=== PATIENT | male | born 1945 | race Caucasian/White ===

== ENCOUNTER → 2016-11-07 | Outpatient (CLI) | payer MEDICARE ==
--- NOTE | 2016-11-07 11:28 | FL ---
EXAMINATION TYPE: FL barium swallow DATE OF EXAM: 11/07/2016 CLINICAL HISTORY: Throat pain for 2 weeks relieved by omeprazole per patient. TECHNIQUE: A double contrast esophagram is performed utilizing air and barium. A total of 19 second s of fluoroscopic time was utilized during procedure. 28 images are saved during procedure. COMPARISON: None FINDINGS: The esophagus shows normal motility and emptying into the stomach. No evidence of hiatal h ernia or stricture noted. No intraluminal mass is noted. No significant gastroesophageal reflux was s een during real time performance of this study. IMPRESSION: No significant abnormality is seen to account for patient's symptoms.
== END | disposition home or self-care (01) ==
LOC: RADFLMAIN 10:38
PROVIDERS: ATTEND Internal Medicine
DX: R13.12 Dysphagia, oropharyngeal phase (principal)
CPT/HCPCS: 74220

== ENCOUNTER → 2017-05-21 | Outpatient (CLI) | payer MEDICARE, OTHER ==
--- NOTE | 2017-05-21 10:27 | XR ---
EXAMINATION TYPE: XR lumbosacral spine min 4V DATE OF EXAM: 05/21/2017 COMPARISON: NONE HISTORY: Low back pain TECHNIQUE: Five-view lumbar spine FINDINGS: There is a scoliosis present with convexity to left. There 5 lumbar-type vertebral bodies. Pedicles are intact. Some facet degenerative changes present L5-S1. Spondylosis is present. Posterior disc space narrowing is present L4-5. Mild disc space narrowing is present L3-4 and L5-S1 . IMPRESSION: 1. Scoliosis. 2. Mild degenerative disc change
== END | disposition home or self-care (01) ==
LOC: RADXRYALE 10:01
PROVIDERS: ATTEND Internal Medicine
DX: M47.816 Spondylosis without myelopathy or radiculopathy, lumbar region (principal); M41.86 Other forms of scoliosis, lumbar region
CPT/HCPCS: 72110

== ENCOUNTER → 2017-08-28 | Outpatient (CLI) | payer MEDICARE ==
--- NOTE | 2017-08-28 12:12 | XR ---
EXAMINATION TYPE: XR cervical spine comp DATE OF EXAM: 08/28/2017 COMPARISON: NONE HISTORY: Neck pain TECHNIQUE: Five-view cervical spine FINDINGS: Mild foraminal narrowing on the left is present C3-4 C4-5 C5-6. There is more moderate narr owing diffusely on the right foramen C3-4 C4-5 C5-6 C6-7. Prevertebral space is normal. Anterior vertebral body spurring is present. Alignment appears normal. Disc heights are preserved. Exam is supplemented with a transthoracic swimmer's view. There is some l imitation visualizing the lower cervical spine. IMPRESSION: 1. Foraminal narrowing present bilaterally, Greater on the right. Consider MRI for additional evalua tion.
== END | disposition home or self-care (01) ==
LOC: RADXRYALE 11:20
PROVIDERS: ATTEND Internal Medicine
DX: M99.71 Connective tissue and disc stenosis of intervertebral foramina of cervical region (principal)
CPT/HCPCS: 72050

== ENCOUNTER → 2017-09-24 | Outpatient (CLI) | payer MEDICARE ==
--- NOTE | 2017-09-24 13:10 | MR ---
EXAMINATION TYPE: MR cervical spine wo con DATE OF EXAM: 09/24/2017 COMPARISON: 08/28/2017 cervical spine radiographs HISTORY: Spinal stenosis, cervical region TECHNIQUE: Multiplanar, multisequence images of the cervical spine were acquired. FINDINGS: The cervical spine vertebral bodies maintain normal vertebral body height and alignment. Melo ne marrow signal is within normal limits. Visualized portions of the posterior fossa are grossly unre markable. Prevertebral soft tissues are within normal limits. No suspicious extra dural fluid collect ion. There is very subtle increased cervical cord signal at C3 on T2-weighted imaging. This is short segment and measures approximately 5 to 6 mm. C2-C3: There is a small central disc herniation effacing the ventral subarachnoid space and abutting the ventral cord creating mild spinal canal stenosis. Bilateral mild uncovertebral hypertrophy also c reates bilateral mild neural foraminal narrowing. C3-C4: There is a right paracentral disc herniation creating moderate spinal canal stenosis and commi nution with ligamentum flavum buckling. This also results in abnormal spinal cord signal focally sugg estive of myelomalacia as there is no cord expansion to indicate acute edema. Uncovertebral hypertrop hy and facet arthropathy moderately narrow the right neural foramen and creating moderate to severe l eft neural foraminal narrowing. C4-C5: There is a small broad-based disc bulge, uncovertebral hypertrophy and facet arthropathy creat ing moderate bilateral neural foraminal narrowing and mild spinal canal stenosis. C5-C6: There is a left paracentral disc herniation impressing upon the cervical cord and effacing the subarachnoid space creating moderate spinal canal stenosis. There is also moderate to severe left ne ural foraminal narrowing as a result of this herniation in combination with uncovertebral hypertrophy and facet arthropathy as well as mild right neural foraminal narrowing. C6-C7: There is a small left paracentral disc herniation creating mild spinal canal stenosis. Uncover tebral hypertrophy and facet arthropathy creates moderate left neural foraminal narrowing and mild ri ght neural foraminal narrowing. C7-T1: There is a small broad-based disc bulge resulting in mild bilateral neural foraminal narrowing . No spinal canal stenosis. IMPRESSION: 1. Right paracentral disc herniation at C3-C4 creating moderate spinal canal stenosis and abnormal sp inal cord signal focally suggesting myelomalacia as there are no secondary signs of acute cord edema. In combination with degenerative changes there is moderate to severe left neural foraminal narrowing and moderate right neural foraminal narrowing at this level. 2. Left paracentral disc herniation at C5-C6 creating moderate spinal canal stenosis, moderate severe left neural foraminal narrowing, and mild right neuroforaminal narrowing. 3. Small left paracentral disc herniation at C6-C7 creating mild spinal canal stenosis. Degenerative changes contribute to moderate left neural foraminal narrowing and mild right neural foraminal narrow ing. 4. Small central disc herniation at C2-C3 creating mild spinal canal stenosis. 5. Moderate multilevel degenerative disc disease throughout the cervical spine without other neurofor aminal narrowing as described above.
== END | disposition home or self-care (01) ==
LOC: RADMRIMAIN 12:19
PROVIDERS: ATTEND Internal Medicine
DX: M48.02 Spinal stenosis, cervical region (principal); M99.71 Connective tissue and disc stenosis of intervertebral foramina of cervical region; M50.223 Other cervical disc displacement at C6-C7 level; M47.812 Spondylosis without myelopathy or radiculopathy, cervical region; M50.30 Other cervical disc degeneration, unspecified cervical region
CPT/HCPCS: 72141

== ENCOUNTER → 2018-01-26 | Outpatient (CLI) | payer MEDICARE ==
--- NOTE | 2018-01-26 23:03 | XR ---
EXAMINATION TYPE: XR femur LT, 2 views DATE OF EXAM: 01/26/2018 COMPARISON: NONE HISTORY: 72-year-old male with left leg pain FINDINGS: There is mild to moderate degenerative spurring at the left hip. Corticated density adjacent to the g reater trochanter. Tricompartmental degenerative spurring at the knee. No sizable knee joint effusion . IMPRESSION: 1. 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 2. No acute osseous abnormality seen. 3. Some corticated density at the greater trochanter could represent fragmented enthesopathy or seque la of prior trauma.
== END ==
LOC: RADXRYALE 16:21
PROVIDERS: ATTEND Internal Medicine
DX: M16.12 Unilateral primary osteoarthritis, left hip (principal); M17.12 Unilateral primary osteoarthritis, left knee

== ENCOUNTER → 2022-01-02 | Outpatient (CLI) | payer MEDICARE ==
--- NOTE | 2022-01-02 15:58 | XR ---
EXAMINATION TYPE: XR lumbosacral spine 5 views DATE OF EXAM: 01/02/2022 Comparison: 05/21/2017 Clinical History: 76-year-old male [id number] LT SCIATICA Findings: Dictation in the lower thoracic and upper to mid lumbar spine. Prominent anterior endplate spondylosi s extends down to the L4 level. Hypertrophic facet arthropathy throughout. Degenerative grade 1 retro listhesis L2-L3, L3-L4, and L4-L5. Trace grade 1 anterolisthesis L5-S1. Mild degenerative disc diseas e with disc space narrowing throughout. Hypertrophic facet arthropathy especially mid to lower lumbar spine. Slight degenerative levoconvex curvature of the lumbar spine. Lumbar vertebral body heights a re preserved. 5 lumbar type vertebral bodies. Cholecystectomy clips. Impression: 1. Changes of DISH extending down to the L4 level. 2. Hypertrophic facet arthropathy throughout with mild degenerative disc disease. 3. Degenerative grade 1 retrolisthesis L2-L3, L3-L4, and L4-L5. These may be fixed spondylolistheses given the patient's DISH.
== END | disposition home or self-care (01) ==
LOC: RADXRYALE 13:13
PROVIDERS: ATTEND Internal Medicine
DX: M47.816 Spondylosis without myelopathy or radiculopathy, lumbar region (principal); M51.36 Other intervertebral disc degeneration, lumbar region; M43.16 Spondylolisthesis, lumbar region
CPT/HCPCS: 72110

== ENCOUNTER → 2022-01-07 | Outpatient (CLI) | payer MEDICARE ==
--- NOTE | 2022-01-07 17:06 | CA ---
Transthoracic Echo Report Name: Moises Duran Age: 76 Gender: M : 1945 Exam Date: 01/07/2022 13:49 Exam Location: [facility] Ht (in): 65 Wt (lb): 210 Ordering Physician: Samreen Morgan MD Attending/Referring Phys: Mental Tester Ruth Foster RDCS Procedure CPT: Indications: I35.0 Nonrheumatic aortic (valve) stenosis Cardiac Hx: Technical Quality: Contrast 1: Total Dose (mL): Contrast 2: Total Dose (mL): MEASUREMENTS (Male / Female) Normal Values 2D ECHO LV Diastolic Diameter PLAX 4.5 cm 4.2 - 5.9 / 3.9 - 5.3 cm LV Systolic Diameter PLAX 2.9 cm IVS Diastolic Thickness 1.5 cm 0.6 - 1.0 / 0.6 - 0.9 cm LVPW Diastolic Thickness 1.9 cm 0.6 - 1.0 / 0.6 - 0.9 cm LV Relative Wall Thickness 0.8 RV Internal Dim ED PLAX 2.7 cm LA Systolic Diameter LX 4.2 cm 3.0 - 4.0 / 2.7 - 3.8 cm M-MODE Aortic Root Diameter MM 2.6 cm LA Systolic Diameter MM 4.6 cm LA Ao Ratio MM 1.8 MV E Point Septal Separation 0.4 cm AV Cusp Separation MM 0.6 cm DOPPLER AV Peak Velocity 362.6 cm/s AV Peak Gradient 58.0 mmHg AV Mean Velocity 255.5 cm/s AV Mean Gradient 30.5 mmHg AV Velocity Time Integral 79.0 cm LVOT Peak Velocity 155.8 cm/s LVOT Peak Gradient 9.7 mmHg MV Area PHT 2.2 cm??? Mitral E Point Velocity 24.4 cm/s Mitral A Point Velocity 64.1 cm/s Mitral E to A Ratio 0.4 MV Deceleration Time 350.0 ms FINDINGS Left Ventricle Moderately increased septal wall thickness. Left ventricular ejection fraction is estimated at 50-55%. Mildly increased left ventricular wall thickness. Right Ventricle Normal right ventricular size and function. Right Atrium Normal right atrial size. Left Atrium Mildly increased left atrial diameter. Mitral Valve Structurally normal mitral valve. Mild mitral regurgitation. Aortic Valve [id number] aortic stenosis with a peak gradient of 58 mmHg and a mean gradient of 31 mmHg. Can't exclude bicuspid aortic valve. Tricuspid Valve Structurally normal tricuspid valve. Trace to mild tricuspid regurgitation. Pulmonic Valve Pulmonic valve not well visualized. Pericardium Normal pericardium. Aorta Normal size aortic root and proximal ascending aorta. CONCLUSIONS Normal LV systolic function Moderate to severe aortic stenosis Previewed by: Dr. Anupam Hall MD (Electronically Signed) Final Date: 07 January 2022 17:05
== END | disposition home or self-care (01) ==
LOC: RADECHMAIN 13:38
PROVIDERS: ATTEND Internal Medicine
DX: I35.0 Nonrheumatic aortic (valve) stenosis (principal)
CPT/HCPCS: 93306